=== PATIENT | female | born 1945 | race Caucasian/White ===

== ENCOUNTER 2019-01-09 09:53 | Outpatient (CLI) | payer OTHER ==
[2019-01-09] MEDS ORDERED: AZOPT10 ML (12:26)
[2019-01-09] MEDS ORDERED: ZANTAC300 MG (12:26)
[2019-01-09] MEDS ORDERED: CRESTOR5 MG (12:27)
[2019-01-09] MEDS ORDERED: RESTORIL30 M1 (12:27)
[2019-01-09] MEDS ORDERED: HYDROCHLORIC AC25 ML (12:27)
[2019-01-09] MEDS ORDERED: DEXILANT60 MG (12:27)
[2019-01-09] MEDS ORDERED: CARVEDILOL3.125 MG (12:27)
[2019-01-09] MEDS ORDERED: OPTIMAL D350000 UNIT (12:28)
[2019-01-09] MEDS ORDERED: PRESERVISION A1 EAC1 (12:28)
[2019-01-09] MEDS ORDERED: OPTIVE EYE DROP15 ML (12:29)
== END 2019-01-09 10:00 | disposition home or self-care (01) ==
LOC: TOM 09:53
DX: C18.7 Malignant neoplasm of sigmoid colon (principal)

== ENCOUNTER 2019-01-09 12:01 | Emergency (ER) | payer OTHER ==
[~2019-01-09] VITALS: Ht 160 cm; Wt 56.7 kg
[2019-01-09] MEDS ORDERED: AZOPT10 ML (12:26)
[2019-01-09] MEDS ORDERED: ZANTAC300 MG (12:26)
[2019-01-09] MEDS ORDERED: CARVEDILOL3.125 MG (12:27)
[2019-01-09] MEDS ORDERED: RESTORIL30 M1 (12:27)
[2019-01-09] MEDS ORDERED: HYDROCHLORIC AC25 ML (12:27)
[2019-01-09] MEDS ORDERED: CRESTOR5 MG (12:27)
[2019-01-09] MEDS ORDERED: DEXILANT60 MG (12:27)
[2019-01-09] MEDS ORDERED: PRESERVISION A1 EAC1 (12:28)
[2019-01-09] MEDS ORDERED: OPTIMAL D350000 UNIT (12:28)
[2019-01-09] MEDS ORDERED: OPTIVE EYE DROP15 ML (12:29)
== END 2019-01-09 14:45 | disposition home or self-care (01) ==
LOC: ER 12:01 → CPU-OBS 13:40 → ER 13:40
DX: R07.89 Other chest pain (principal); R06.4 Hyperventilation; F41.0 Panic disorder [episodic paroxysmal anxiety]